=== PATIENT | female | born 1950 | race Caucasian/White ===

== ENCOUNTER → 2018-08-23 16:45 | Outpatient (CLI) | payer MEDICARE, SELFPAY ==
[2018-08-23 18:00] LABS: Hematocrit 31.6 % (37-47); Hemoglobin 9.1 g/dl (12.0-15.0)
[2018-08-23 18:27] LABS: Iron 255 ug/dL (50-170)
[2018-08-25 16:08] LABS: Endomysial Antibody IgA Negative (Negative); Immunoglobulin A 81 mg/dL (87-352)
[2018-08-26 07:55] LABS: t-Transglutaminase IgA <2 U/mL (0-3)
== END ==
PROVIDERS: Family Provider Family Medicine; PCP Family Medicine; Referring Provider Internal Medicine Gastroenterology; Visit Provider Internal Medicine Gastroenterology
DX: D50.9 Iron deficiency anemia, unspecified (principal)
CPT/HCPCS: 36415; 82784; 83516; 83540; 85014; 85018; 86255

== ENCOUNTER → 2018-09-14 09:00 | Outpatient (CLI) | payer MEDICARE, SELFPAY ==
[2018-09-14 10:29] LABS: Absolute Lymphocyte Count 1.32 X10^3/ul (0.83-4.51); Absolute Neutrophil Count 3.2 X10^3/uL (2.0-7.7); Basophil# 0.03 X10^3/uL; Basophil% 0.6 % (0-1); Eosinophil# 0.29 X10^3/uL; Eosinophils% 5.4 % (0-5); Hematocrit 34.1 % (37-47); Hemoglobin 10.6 g/dl (12.0-15.0); Lymphocyte # 1.32 X10^3/ul (4.0); Lymphocyte % 24.4 % (19-41); Mean Corp Hgb Conc 31.1 g/gl (32-36); Mean Corpuscular Hgb 27.2 pg (27.0-32.0); Mean Corpuscular Volume 87.4 fL (81-99); Mean Platelet Vol. 9.7 fl (6.2-12.0); Monocyte# 0.59 X10^3/uL; Monocyte% 10.9 % (0-10); Neutrophil # 3.18 X10^3/uL (2.7-7.7); Neutrophil % 58.5 % (47-70); Platelet Count 384 K/mm3 (150-450); White Blood Count 5.4 K/mm3 (4.4-11.0)
[2018-09-14 10:34] LABS: Differential Indicated SCAN CRITERIA MET; POSITIVE COUNT NO; POSITIVE DIFFERENTIAL NO; POSITIVE MORPHOLOGY YES
[2018-09-14 11:02] LABS: Anisocytosis 2+; Hypochromasia 2+
[2018-09-14 11:03] LABS: Ferritin 41 ng/mL (8-252); Iron 38 ug/dL (50-170)
== END ==
PROVIDERS: Family Provider Family Medicine; PCP Family Medicine; Referring Provider Internal Medicine Gastroenterology; Visit Provider Internal Medicine Gastroenterology
DX: D50.9 Iron deficiency anemia, unspecified (principal); R53.83 Other fatigue
CPT/HCPCS: 36415; 82728; 83540; 85025

== ENCOUNTER → 2018-11-02 | Outpatient (CLI) | payer MEDICARE, SELFPAY ==
[2018-11-02 12:31] LABS: Absolute Lymphocyte Count 1.14 X10^3/ul (0.83-4.51); Basophil# 0.01 X10^3/uL; Basophil% 0.3 % (0-1); Eosinophil# 0.14 X10^3/uL; Eosinophils% 3.6 % (0-5); Hematocrit 34.7 % (37-47); Lymphocyte # 1.14 X10^3/ul (4.0); Lymphocyte % 29.3 % (19-41); Mean Corp Hgb Conc 31.7 g/gl (32-36); Mean Corpuscular Hgb 28.9 pg (27.0-32.0); Mean Corpuscular Volume 91.3 fL (81-99); Mean Platelet Vol. 9.2 fl (6.2-12.0); Monocyte# 0.59 X10^3/uL; Monocyte% 15.2 % (0-10); Neutrophil # 2.01 X10^3/uL (2.7-7.7); Neutrophil % 51.6 % (47-70); Platelet Count 333 K/mm3 (150-450); RBC Distribution Width CV 19.1 % (11.6-14.6); RBC Distribution Width SD 62.9 fl (35.1-43.9); White Blood Count 3.9 K/mm3 (4.4-11.0)
[2018-11-02 12:37] LABS: POSITIVE COUNT NO; POSITIVE DIFFERENTIAL NO; POSITIVE MORPHOLOGY NO
[2018-11-02 13:29] LABS: Ferritin 45 ng/mL (8-252); Iron 36 ug/dL (50-170)
== END | disposition home or self-care (01) ==
LOC: MTLAB 10:57
PROVIDERS: Family Provider Family Medicine; PCP Family Medicine; Referring Provider Internal Medicine Gastroenterology; Visit Provider Internal Medicine Gastroenterology
DX: D50.9 Iron deficiency anemia, unspecified (principal)
CPT/HCPCS: 36415; 82728; 83540; 85025

== ENCOUNTER → 2018-11-26 09:11 | Outpatient (CLI) | payer MEDICARE, SELFPAY ==
--- NOTE | 2018-11-26 09:25 | RAD_ITS ---
STUDY: AIR-CONTRAST UPPER GI SERIES. REASON FOR EXAM: Female, 68 years old. Hiatal hernia. Anemia. FLUOROSCOPY TIME (if supplied): (0:33) minutes/seconds. 23 images were obtained. TECHNIQUE: The patient ingested barium. Multiple images of the esophagus, stomach and duodenum were obtained. COMPARISON: None. FINDINGS: There is evidence of a large hiatal hernia with gastroesophageal reflux. There is also evidence of tertiary contractions of the distal esophagus. The remainder of the stomach and duodenum is unremarkable. RAD/Upper GI Series Only IMPRESSION: Large hiatal hernia with gastroesophageal reflux. Tertiary contractions of the distal esophagus. Electronically Signed: Manav Sheth, at 15:30 EDT , Service support ,
== END ==
PROVIDERS: Family Provider Family Medicine; PCP Family Medicine; Referring Provider Internal Medicine Gastroenterology; Visit Provider Internal Medicine Gastroenterology
DX: K44.9 Diaphragmatic hernia without obstruction or gangrene (principal); K21.9 Gastro-esophageal reflux disease without esophagitis
CPT/HCPCS: 74246

== ENCOUNTER 2020-09-14 06:45 | Observation (INO) | payer MEDICARE, SELFPAY ==
[2020-09-13 15:05] VITALS: BP 166/64; PULSE 76; RESP 16; TEMP 36.3; O2SAT 96
--- NOTE | 2020-09-13 15:09 | PCM.HP.STD ---
History of Present Illness Date of Admission: 09/13/20 The patient is a 70 year old F Is a direct admit from [facility]. Patient was admitted yesterday morning after going to the ER due to right upper quadrants/right back pain starting about 2:30 AM on Thursday. Patient states she had nausea and dry heaves at that time. Patient was initially worked up for cardiac which was negative. Patient then had a gallbladder ultrasound which showed sludge/stones at the neck of the gallbladder, No pericholecystic fluid per the report,Gallbladder wall of 3.5 mm, normal common bile duct. Patient's MRCP completed there as well showed pericholecystic fluid and normal common bile duct.Patient's total bilirubin was initially 1.51 down to 1 today. Patient's ALT and AST and alk phos were all elevated improved a little today.Patient has been on Zosyn IV during the entire hospital stay. Patient also had issues with blood pressure did receive her normal blood pressure meds of atenolol but also required some hydralazine due to systolic blood pressures in the 180s to 190s. Patient does have a history of Covid in June of last year. Patient also has myasthenia gravis ocular which she takes 5 mg of prednisone for which has been controlled patient symptoms only include double vision when she has not had for a while. Past Medical History Allergies naproxen Allergy (Verified 09/13/20 14:08) Other UNKNOWN REACTION NSAIDS (Non-Steroidal Anti-Inflamma Adverse Reaction (Verified 09/13/20 14:07) Bleeding Home Medications: Ambulatory Orders Medication Instructions Recorded Acetaminophen [Acetaminophen Extra 1,000 mg PO Q4H PRN PRN 09/13/20 Strength] Atenolol 50 mg PO BID 09/13/20 Furosemide 40 mg PO DAILY 09/13/20 Paroxetine [Paxil] 20 mg PO DAILY 09/13/20 Potassium Chloride 10 meq PO DAILY 09/13/20 Pravastatin [Pravachol] 40 mg PO DAILY 09/13/20 Prednisone 5 mg PO DAILY 09/13/20 Surgical History: total knee arthroplasty - left, tonsillectomy, - - Hiatal hernia repair in February 2020 at [facility] by Dr. Bonds, right carpal tunnel Psychiatric History: Depression [employer] History: No pertinent [employer] history Lives: Spouse/ Significant Other Smoking Status: Never smoker Alcohol: Occasional - *Family History Maternal History Items: No pertinent history Review of Systems Constitutional: Reports: Anorexia Eyes: Denies: Blurred vision - Can have a double vision with her myasthenia gravis has not had that in a while. HEENT: Denies: Difficulty Swallowing Respiratory: Denies: Cough Gastrointestinal: Reports: Abdominal Pain, Constipation, Nausea Genitourinary: Denies: Dysuria Neurological: Denies: Double vision - Only if she is having symptoms of her myasthenia gravis currently denies Hematologic/ Lymphatic: Reports: Easy Bleeding VTE Information - Inpt Only VTE Present on Admission: Yes VTE Mechan Device Prophylaxis: SCD's - Physical Exam Vitals/I&O's: Vital Signs Temp Pulse Resp BP Pulse Ox 97.3 F L 76 16 166/64 H 96 09/13/20 15:05 09/13/20 15:05 09/13/20 15:05 09/13/20 15:05 09/13/20 15:05 Oxygen Delivery Method Room Air General: Alert, Oriented x3, Cooperative, No apparent distress HEENT: Atraumatic Lungs: Normal air movement Cardiovascular: Regular rate Abdomen: Soft, Non-Distended, Tender - Right upper quadrant, equivocal rebound, no involuntary guarding Extremities: No clubbing, No cyanosis Neurological: Cranial nerves II-XII grossly intact Psych/Mental Status: Normal Affect Assessment/Plan 70 y/o F with acute cholecystitis, HTN, Myasthenia gravis 1. Keep patient n.p.o./IV fluids, Okay for meds with sips, plan for a laparoscopic cholecystectomy with cholangiograms tomorrow about 11 AM. Reviewed the anatomy with the patient and discussed the procedure: laparoscopic cholecystectomy with possible cholangiograms, possible open. Review risks including but not limited to bleeding, infection, hernia, bile leak, retained gallstones requiring another procedure ERCP- Endoscopic Retrograde Cholangiopancreatography, injury to another organ (bile ducts, common bile duct, small bowel, etc.) which may require transfer to a tertiary care facility. and conversion to an open procedure. All questions were answered. 2. Consult hospitalist for help with blood pressure management/optimization prior to surgery tomorrow. Arianna Stevenson M.D. Pager: [phone] [facility] [address] [place] [address], [facility], [address] [place], [place] [id number] Office: [phone] Inpatient E&M: 28866 Init Hosp L3
[2020-09-13 15:12] VITALS: BMI 37.0
--- NOTE | 2020-09-13 15:15 | EKG12_ITS ---
Test Reason : PRE OP Blood Pressure : / mmHG Vent. Rate : 053 BPM Atrial Rate : 053 BPM P-R Int : 168 ms QRS Dur : 084 ms QT Int : 464 ms P-R-T Axes : 044 024 025 degrees QTc Int : 435 ms Sinus bradycardia Otherwise normal ECG Confirmed by BENJA YODER, CHAUNCEY ([id number]), associate entertainment editor AYE PACHECO ([id number]) on 09/18/2020 1:11:34 PM Referred By: JOVI Confirmed By:CHAUNCEY YOUSIF MD
[2020-09-13 15:21] VITALS: BMI 37.0
--- NOTE | 2020-09-13 15:45 | RAD_ITS ---
STUDY: X-RAY CHEST REASON FOR EXAM: Female, 70 years old. Pre-op for pelvic surgery TECHNIQUE: Single AP portable view of the chest. COMPARISON: None. FINDINGS: The lungs are expanded with diffuse airspace and interstitial markings in both lung carrasquillo. There are no previous studies available for comparison so I am unsure if this is a baseline finding in this patient. I suspect however that there is a superimposed process. The findings in this study can be seen with covid pneumonia, multifocal pneumonitis or pulmonary vascular congestion. There is no demonstrated pleural abnormality. Normal size heart. Normal mediastinum and reyes. Normal visualized pulmonary arteries. Normal visualized aortic arch and descending thoracic aorta. There are diffuse degenerative changes of the visualized thoracic spine. Normal visualized ribs, clavicles, and shoulders. There is no demonstrated abnormality of the visualized soft tissue structures of the upper abdomen. RAD/Chest 1 View (Portable) IMPRESSION: Diffuse airspace and interstitial markings in both lung carrasquillo. Differential as described above. Since there is no previous study available for comparison, the markings may be a baseline finding for the patient. Electronically Signed: Mukesh Pinzon MD at 16:56 EST , Service support ,
--- NOTE | 2020-09-13 15:58 | PCM.PN.HOSP ---
Subjective: Ms. Lubin is a 70-year-old female with a past medical history of hypertension, hyperlipidemia, depression, GERD, and chronic prednisone secondary to myasthenia gravis ocular who presents here as a direct admission from [facility]. The patient was admitted to [facility] yesterday morning after going to the emergency department secondary to right upper quadrant pain and right-sided back pain that started approximately 2:30 AM on Thursday. She had nausea and dry heaves at that time. She initially underwent a cardiac work-up which was negative. She then had a gallbladder ultrasound which showed sludge/stones in the neck of the gallbladder. The common bile duct was reported as normal. An MRCP was completed there and showed pericholecystic fluid within normal common bile duct. She initially had an elevated bilirubin at 1.5 which has come down today to 1. But her ALT, AST, and alk phos were all elevated with some mild improvement in the last 24 hours. She has been on IV Zosyn during her hospitalization. She was admitted to Dr. Stevenson from service with the plan to have a lap marylin done tomorrow morning at 11 AM. Medicine has been consulted for persistent hypertension with systolics in the 180s to 190s prior to arrival. Current vital signs show normal temperature with a pulse at 76 a blood pressure of 166/64 respiratory rate of 16 and an oxygen saturation of 96% on room air. Vitals/I&O's: Vital Signs Temp Pulse Resp BP Pulse Ox 97.3 F L 76 16 166/64 H 96 09/13/20 15:05 09/13/20 15:05 09/13/20 15:05 09/13/20 15:05 09/13/20 15:05 Oxygen Delivery Method Room Air Weight: 88.8 kg Body Mass Index (BMI) 37.0 General: Alert, Oriented x3, Cooperative, No apparent distress, Well developed, Well nourished, - - Obese white female sitting up in bed, watching TV, appears comfortable HEENT: Atraumatic, PERRLA, EOMI, Normocephalic, EAC Clear Oral: Moist Mucosa, No Gingival or Mucosal Lesions/ Ulcerations, - - Mallampati 3 Neck: Supple, No JVD, Negative Carotid Bruits, Negative Hepatojugular Reflux, No Nodes, No Nuchal Rigidity, Trachea Midline, Thyroid Normal Size and Texture Lungs: Clear to auscultation, Normal air movement, No rhonchi, No wheeze, No rales Cardiovascular: Regular rate, Regular Rhythm, Normal S1, Normal S2, No murmurs, No Ectopic Activity, No rub noted, No Gallop Abdomen: Bowel Sounds Present, Soft, Non-Distended, No Hepato-splenomegaly, Tender - Right upper quadrant Extremities: No clubbing, No cyanosis, No edema, Capillary Refill Less than 3 Seconds, Peripheral Pulses Normal Neurological: Cranial nerves II-XII grossly intact, Neuro grossly intact Psych/Mental Status: Normal Affect, Appropriate Current Medications Hydralazine HCl (Hydralazine 20 Mg/Ml Vial) 10 mg IV Q6H PRN PRN PRN Reason: SBP>160 Sodium Chloride () 1,000 mls @ 100 mls/hr IV .Q10H KANDACE Piperacillin Sod/Tazobactam (Sod 3.375 gm/ Sodium Chloride) 50 mls @ 12.5 mls/hr IV Q8 KANDACE Morphine Sulfate (Morphine 2 Mg/Ml Syringe) 2 - 4 mg IV Q2H PRN PRN PRN Reason: PAIN Ondansetron HCl (Ondansetron 4 Mg/2 Ml Vial) 4 mg IV Q8H PRN PRN PRN Reason: NAUSEA Sodium Chloride (0.9% Saline Lock 10 Ml Syringe) 10 - 40 ml IV UD PRN PRN Reason: SALINE FLUSH STROKE Vital Signs/Narrative: Vital Signs Temp Pulse Resp BP Pulse Ox 09/13/20 15:05 97.3 F L 76 16 166/64 H 96 Medical Necessity - Tobacco Use Smoking Status: Never smoker Assessment/Plan Acute cholecystitis -OR tomorrow at 11 AM for lap marylin -Patient is admitted to Dr. Tate's service -Lab ordered for a.m. -As needed Zofran -Continue Zosyn -Patient had extensive cardiac work-up prior to admission and this was all negative -Preop EKG required Transaminitis -Continue to trend labs -OR tomorrow morning Hypertension -Continue home atenolol 50 mg p.o. twice daily -Continue Lasix 40 mg daily -Add hydralazine 10 mg every 6 hours as needed for systolic blood pressure greater than 160 Hyperlipidemia -Continue pravastatin Myasthenia gravis ocular -Continue prednisone 5 mg daily -Patient does not require stress dose steroids with procedures or illness Obesity -Recommend weight loss -BMI 37 DVT prophylaxis -Start SCDs -Chemical prophylaxis per primary Inpatient E&M: 23598 Subs Hosp L2
[2020-09-13] MEDS: 0.9% Normal Saline 1,000 ML 100 ML IV (18:00)
[2020-09-13 19:50] VITALS: BP 189/72; PULSE 57; RESP 18; TEMP 36.7; O2SAT 95
[2020-09-13] MEDS: Atenolol 50 MG Tablet PO (19:50)
[2020-09-13] MEDS: Acetaminophen 325 MG Tablet 650 MG PO (20:22)
[2020-09-13] MEDS: Pravastatin 40 MG Tablet PO (22:08)
[2020-09-13 22:10] VITALS: BP 191/82; PULSE 53; RESP 16; TEMP 36.7; O2SAT 96
[2020-09-13] MEDS: hydrALAZINE 20 MG/ML Vial 10 MG IV (22:10)
[2020-09-13 23:20] VITALS: BP 157/69; PULSE 65; RESP 16; TEMP 36.6; O2SAT 96
[2020-09-14] VITALS (19 sets, daily range): BP systolic 114–210; BP diastolic 66–82; PULSE 62–82; RESP 12–18; TEMP 36.5–37.2; O2SAT 94–99; BMI 37.0
--- NOTE | 2020-09-14 | GALL_PTH ---
PATIENT: UBALDO ROJAS LOC: [facility] U#:[id number] AGE/SX: 70/F ROOM: [facility] RE09/14/[address]: Dr. Sania Cosme MD : 1950 BED: 1 DIS: 09/14/2020 SPEC #: [id number] RECD: 09/14/20 13:52 STATUS: ALMA REQ #: [id number] JIA: 09/14/20 00:[address]: Arianna Stevenson DEPT: SURGICAL PATHOLOGY RECD BY: Rasta Wesley ENTERED: 09/17/20 08:27 SP TYPE: GALLBLADDE OTHR DR: MD Dr. Shereen Murphy DO Dr. Nana Yaa Koram, MD Dr. Tamera Robotham, MD Tissues: Gallbladder, NOS Procedures: Surgery Specimen Level III Comments: @ Ordering doctor for SUIII edited from to @ by PEPE at 09/17/20 151 @ Submitting doctor edited from to @ by RGOOD at 09/17/201510 HEADER OPERATION: Laparoscopic cholecystectomy with IOC PRE-OP DIAGNOSIS: Acute cholecystitis TISSUE SUBMITTED: Gallbladder MICROSCOPIC DIAGNOSIS Gallbladder, cholecystectomy: Mild chronic cholecystitis and cholelithiasis. ESMER:jenny 09/18/2020 MICROSCOPIC DESCRIPTION Slides are reviewed. GROSS DESCRIPTION Received is one container labeled with the patient's name and designated gallbladder. The specimen consists of a gallbladder measuring 8 cm in length and up to 3 cm in diameter. The external surface is pink-peters, smooth and glistening for the most part. Focally it is granular, hemorrhagic and contains cautery artifact. The gallbladder contains green-yellow mucoid bile and multiple brownish stones measuring in aggregate 2 x 1.5 x 0.1 cm and 0.1 cm in greatest dimension. The mucosa is bile-stained and without any mass lesions. The gallbladder wall measures up to 0.2 cm in thickness. Professor Of Art sections from the gallbladder and the cystic duct are submitted in one cassette. / ESMER:jenny 09/17/20 TC:3 CPT: 87254
[2020-09-14] MEDS: Ondansetron 4 MG/2 ML Vial IV (01:41)
[2020-09-14] MEDS: 0.9% Normal Saline 1,000 ML 100 ML IV ×2 (02:38→14:09)
[2020-09-14] MEDS: hydrALAZINE 20 MG/ML Vial 10 MG IV (05:44)
--- NOTE | 2020-09-14 05:55 | EKG12_ITS ---
Test Reason : AM EKG Blood Pressure : / mmHG Vent. Rate : 061 BPM Atrial Rate : 061 BPM P-R Int : 166 ms QRS Dur : 088 ms QT Int : 444 ms P-R-T Axes : 054 024 -03 degrees QTc Int : 446 ms Normal sinus rhythm Normal ECG No previous ECGs available Confirmed by BENJA YODER, CHAUNCEY ([id number]), editorial clerk AYE PACHECO ([id number]) on 09/18/2020 1:04:54 PM Referred By: JOVI Confirmed By:CHAUNCEY YOUSIF MD
[2020-09-14 05:57] LABS: Absolute Lymphocyte Count 1.03 X10^3/uL (0.83-4.51); Absolute Neutrophil Count 4.7 X10^3/uL (2.0-7.7); Basophil# 0.02 X10^3/uL; Basophil% 0.3 % (0-1); Eosinophil# 0.18 X10^3/uL; Eosinophils% 2.8 % (0-5); Hematocrit 37.4 % (37-47); Hemoglobin 11.8 g/dL (12.0-15.0); Lymphocyte # 1.03 X10^3/ul (4.0); Lymphocyte % 15.8 % (19-41); Mean Corp Hgb Conc 31.6 g/dL (32-36); Mean Corpuscular Hgb 32.2 pg (27.0-32.0); Mean Corpuscular Volume 101.9 fL (81-99); Mean Platelet Vol. 9.4 fl (6.2-12.0); Monocyte# 0.56 X10^3/uL; Monocyte% 8.6 % (0-10); NRBC Flagged by Analyzer 0 % (0-5); Neutrophil # 4.69 X10^3/uL (2.7-7.7); Platelet Count 228 K/mm3 (150-450); RBC Distribution Width CV 13.5 % (11.6-14.6); RBC Distribution Width SD 50.6 fl (35.1-43.9); Red Blood Count 3.67 M/mm3 (4.2-5.4); White Blood Count 6.5 K/mm3 (4.4-11.0)
[2020-09-14 06:27] LABS: AST(SGOT) 116 U/L (15-37); Alanine Aminotransfer ALT/SGPT 199 U/L (13-56); Albumin, Serum 3.2 g/dL (3.2-5.0); Alkaline Phosphatase 181 U/L (45-117); Anion Gap 9 (5-15); BUN 8 mg/dL (7-18); Bilirubin, Direct 0.32 mg/dL (0.00-0.30); Calcium,Total 8.6 mg/dL (8.5-10.1); Chloride 105 mmol/L (98-107); Creatinine, Serum 0.67 mg/dL (0.55-1.02); EST Glomerular Filtration Rate 93 mL/min (>60); Est Glom Filt Rate - Afr Amer 113 mL/min (>60); Globulin 3.6 g/dL (2.2-4.2); Glucose 85 mg/dL (74-106); Potassium 4.3 mmol/L (3.5-5.1); Protein, Total 6.8 g/dL (6.4-8.2); Sodium Level 140 mmol/L (136-145)
[2020-09-14] MEDS: predniSONE 5 MG Tablet PO (08:11)
[2020-09-14] MEDS: Atenolol 50 MG Tablet PO (08:12)
[2020-09-14] MEDS: Paroxetine 20 MG Tablet PO (08:12)
[2020-09-14] MEDS: Furosemide 40 MG Tablet PO (08:12)
--- NOTE | 2020-09-14 08:15 | PCM.PN.SRG ---
Subjective: Patient did have some dry heaves with going to the bathroom during the night. Patient states that her abdominal pain is improved overall. Patient still has had blood pressures systolically in the 160s last states where patient has been on her medication she needs to follow-up with PCP. - Physical Exam Vitals/I&O's: Vital Signs Temp Pulse Resp BP Pulse Ox 98.0 F 64 18 196/80 H 94 09/14/20 05:34 09/14/20 05:44 09/14/20 05:34 09/14/20 05:34 09/14/20 05:34 Oxygen Delivery Method Room Air Weight: 195 lb 12.328 oz Body Mass Index (BMI) 37.0 Intake and Output for Last 24 Hours 09/12/20 09/13/20 09/14/20 23:59 23:59 23:59 Intake Total 390 / 390 913.33 / 913.33 Balance 390 / 390 913.33 / 913.33 General: Alert, Oriented x3, Cooperative, No apparent distress HEENT: Atraumatic Lungs: Normal air movement Cardiovascular: Regular rate Abdomen: Soft, Non-Distended, Tender - The right upper quadrant, no peritoneal signs Laboratory Results 09/14/20 05:40: WBC 6.5, RBC 3.67 L, Hgb 11.8 L, Hct 37.4, MCV 101.9 H, MCH 32.2 H, MCHC 31.6 L, RDW Std Deviation 50.6 H, RDW Coeff of Eneida 13.5, Plt Count 228, MPV 9.4, Immature Gran % (Auto) 0.500, Neut % (Auto) 72.0 H, Lymph % (Auto) 15.8 L, Keith % (Auto) 8.6, Eos % (Auto) 2.8, Baso % (Auto) 0.3, Absolute Neuts (auto) 4.7, Absolute Lymphs (auto) 1.03, Nucleated RBC % 0 09/14/20 05:40: Sodium 140, Potassium 4.3, Chloride 105, Carbon Dioxide 26.0, Anion Gap 9, BUN 8, Creatinine 0.67, Estim Creat Clear Calc 39.50, Est GFR (MDRD) Af Amer 113, Est GFR (MDRD) Non-Af 93, BUN/Creatinine Ratio 12.0, Glucose 85, Calcium 8.6, Total Bilirubin 1.00, Direct Bilirubin 0.32 H, AST 116 H, ALT 199 H, Alkaline Phosphatase 181 H, Total Protein 6.8, Albumin 3.2, Globulin 3.6 Current Medications Acetaminophen (Acetaminophen 325 Mg Tablet) 650 mg PO Q6H PRN PRN PRN Reason: Pain 1-10 or Fever Last Admin: 09/13/20 20:22 Dose: 650 mg Documented by: Atenolol (Atenolol 50 Mg Tablet) 50 mg PO BID REPLACED BY [facility] Last Admin: 09/14/20 08:12 Dose: 50 mg Documented by: Furosemide (Furosemide 40 Mg Tablet) 40 mg PO DAILY REPLACED BY [facility] Last Admin: 09/14/20 08:12 Dose: 40 mg Documented by: Hydralazine HCl (Hydralazine 20 Mg/Ml Vial) 10 mg IV Q4H PRN PRN PRN Reason: SBP>170 Last Admin: 09/14/20 05:44 Dose: 10 mg Documented by: Sodium Chloride () 1,000 mls @ 100 mls/hr IV .Q10H REPLACED BY [facility] Last Admin: 09/14/20 02:38 Dose: 100 mls/hr Documented by: Piperacillin Sod/Tazobactam (Sod 3.375 gm/ Sodium Chloride) 50 mls @ 12.5 mls/hr IV Q8 REPLACED BY [facility] Last Admin: 09/14/20 05:29 Dose: 12.5 mls/hr Documented by: Morphine Sulfate (Morphine 2 Mg/Ml Syringe) 2 - 4 mg IV Q2H PRN PRN PRN Reason: PAIN Ondansetron HCl (Ondansetron 4 Mg/2 Ml Vial) 4 mg IV Q8H PRN PRN PRN Reason: NAUSEA Last Admin: 09/14/20 01:41 Dose: 4 mg Documented by: Paroxetine HCl (Paroxetine 20 Mg Tablet) 20 mg PO DAILY REPLACED BY [facility] Last Admin: 09/14/20 08:12 Dose: 20 mg Documented by: Pravastatin Sodium (Pravastatin 40 Mg Tablet) 40 mg PO HS REPLACED BY [facility] Last Admin: 09/13/20 22:08 Dose: 40 mg Documented by: Prednisone (Prednisone 5 Mg Tablet) 5 mg PO DAILYCM REPLACED BY [facility] Last Admin: 09/14/20 08:11 Dose: 5 mg Documented by: Sodium Chloride (0.9% Saline Lock 10 Ml Syringe) 10 - 40 ml IV UD PRN PRN Reason: SALINE FLUSH Medical Necessity - Tobacco Use Smoking Status: Never smoker Assessment/Plan 70 y/o F with acute cholecystitis, HTN, Myasthenia gravis 1. Scheduled for laparoscopic cholecystectomy with cholangiograms today. Patient no questionable the procedure. 2. Appreciate hospitalist to help with hypertension Arianna Stevenson M.D. Pager: [phone] [facility] [address] [place] [address], [facility], [address] [place] [address] Office: [phone] Procedure Criteria COVID Risk Discussion: Already had Covid in June.
--- NOTE | 2020-09-14 11:24 | RAD_ITS ---
STUDY: INTRAOPERATIVE CHOLANGIOGRAM. REASON FOR EXAM: Female, 70 years old. LAPAROSCOPIC, CHOLECYSTECTOMY WITH IOC -- PT IS DIRECT ADMIT FROM [facility] FLUOROSCOPY TIME (if supplied): ( 13.7 seconds ) minutes/seconds. A cine loop of 54 images were submitted. TECHNIQUE: An intraoperative cholangiogram was performed by the surgeon. Imaging was submitted. COMPARISON: None. FINDINGS: The visualized intra and extrahepatic biliary ducts are unremarkable. There is free flow of contrast into the duodenum. No intraluminal filling defect is seen. RAD/Cholangiogram/ O R,Initial IMPRESSION: Unremarkable intraoperative cholangiogram. Electronically Signed: Manav Sheth MD at 12:47 EST , Service support ,
--- NOTE | 2020-09-14 12:01 | PN_ITS ---
Subjective: She is seen and examined. She has been managed for acute cholecystitis and she is due for cholecystectomy today. Hospitalist service was consulted for medical management of elevated blood pressure. She says she had a rough night due to abdominal pain and nausea. Abdominal pain has improved this morning. Review of systems otherwise negative. She does state that her blood pressure has been poorly controlled even at home with her systolic usually been in the 160s and above at home. Vitals/I&O's: Vital Signs Temp Pulse Resp BP Pulse Ox 98.6 F 67 16 192/74 H 98 09/14/20 10:46 09/14/20 11:02 09/14/20 10:46 09/14/20 10:52 09/14/20 10:46 Oxygen Delivery Method Room Air Weight: 195 lb 12.328 oz Body Mass Index (BMI) 37.0 Intake and Output for Last 24 Hours 09/12/20 09/13/20 09/14/20 23:59 23:59 23:59 Intake Total 390 / 390 963.33 / 963.33 Balance 390 / 390 963.33 / 963.33 General: Alert, Oriented x3, Cooperative, No apparent distress HEENT: Atraumatic, PERRLA, EOMI, Normocephalic Oral: Dry Mucosa Neck: Supple, No JVD, Negative Carotid Bruits Lungs: Clear to auscultation, Normal air movement, No rhonchi, No wheeze, No rales Cardiovascular: Regular rate, Regular Rhythm, Normal S1, Normal S2, No murmurs Abdomen: Bowel Sounds Present, Soft, - - positive Vance's sign Extremities: No clubbing, No cyanosis, No edema, Capillary Refill Less than 3 Seconds Skin: No rashes, No breakdown Musculoskeletal: No Tenderness to Palpation of Joints or Extremities Lymphatic: No Cervical, Supraclavicular, or Inguinal Adenopathy Neurological: Cranial nerves II-XII grossly intact, Neuro grossly intact, Motor Exam 5/5 strength throughout Psych/Mental Status: Normal Affect, Appropriate, Alert and oriented to time, place, person, mood and affect Laboratory Results 09/14/20 05:40: WBC 6.5, RBC 3.67 L, Hgb 11.8 L, Hct 37.4, MCV 101.9 H, MCH 32.2 H, MCHC 31.6 L, RDW Std Deviation 50.6 H, RDW Coeff of Eneida 13.5, Plt Count 228, MPV 9.4, Immature Gran % (Auto) 0.500, Neut % (Auto) 72.0 H, Lymph % (Auto) 15.8 L, [place] % (Auto) 8.6, Eos % (Auto) 2.8, Baso % (Auto) 0.3, Absolute Neuts (auto) 4.7, Absolute Lymphs (auto) 1.03, Nucleated RBC % 0 09/14/20 05:40: Sodium 140, Potassium 4.3, Chloride 105, Carbon Dioxide 26.0, Anion Gap 9, BUN 8, Creatinine 0.67, Estim Creat Clear Calc 39.50, Est GFR (MDRD) Af Amer 113, Est GFR (MDRD) Non-Af 93, BUN/Creatinine Ratio 12.0, Glucose 85, Calcium 8.6, Total Bilirubin 1.00, Direct Bilirubin 0.32 H, AST 116 H, ALT 199 H, Alkaline Phosphatase 181 H, Total Protein 6.8, Albumin 3.2, Globulin 3.6 Diagnostic Data Chest X-Ray 09/13/20 15:45 IMPRESSION: Diffuse airspace and interstitial markings in both lung carrasquillo. Differential as described above. Since there is no previous study available for comparison, the markings may be a baseline finding for the patient. Electronically Signed: Mukesh Pinzon MD at 16:56 EST , Service support , Current Medications Acetaminophen (Acetaminophen 325 Mg Tablet) 650 mg PO Q6H PRN PRN PRN Reason: Pain 1-10 or Fever Last Admin: 09/13/20 20:22 Dose: 650 mg Documented by: Atenolol (Atenolol 50 Mg Tablet) 50 mg PO BID [facility] Last Admin: 09/14/20 08:12 Dose: 50 mg Documented by: Furosemide (Furosemide 40 Mg Tablet) 40 mg PO DAILY [facility] Last Admin: 09/14/20 08:12 Dose: 40 mg Documented by: Hydralazine HCl (Hydralazine 20 Mg/Ml Vial) 10 mg IV Q4H PRN PRN PRN Reason: SBP>170 Last Admin: 09/14/20 05:44 Dose: 10 mg Documented by: Sodium Chloride () 1,000 mls @ 100 mls/hr IV .Q10H [facility] Last Admin: 09/14/20 02:38 Dose: 100 mls/hr Documented by: Piperacillin Sod/Tazobactam (Sod 3.375 gm/ Sodium Chloride) 50 mls @ 12.5 mls/hr IV Q8 [facility] Last Infusion: 09/14/20 10:12 Dose: Infused Documented by: Morphine Sulfate (Morphine 2 Mg/Ml Syringe) 2 - 4 mg IV Q2H PRN PRN PRN Reason: PAIN Ondansetron HCl (Ondansetron 4 Mg/2 Ml Vial) 4 mg IV Q8H PRN PRN PRN Reason: NAUSEA Last Admin: 09/14/20 01:41 Dose: 4 mg Documented by: Paroxetine HCl (Paroxetine 20 Mg Tablet) 20 mg PO DAILY [facility] Last Admin: 09/14/20 08:12 Dose: 20 mg Documented by: Pravastatin Sodium (Pravastatin 40 Mg Tablet) 40 mg PO HS [facility] Last Admin: 09/13/20 22:08 Dose: 40 mg Documented by: [facility]one ([facility] 5 Mg [facility]) [facility] Last Admin: 09/14/20 08:11 Dose: 5 mg Documented by: Sodium Chloride (0.9% Saline Lock 10 Ml Syringe) 10 - 40 ml IV UD PRN PRN Reason: SALINE FLUSH STROKE Vital Signs/Narrative: Vital Signs Temp Pulse Resp BP Pulse Ox 09/14/20 11:02 67 09/14/20 10:52 192/74 H 09/14/20 10:46 98.6 F 68 16 98 09/14/20 08:17 97.9 F 76 16 169/73 H 95 Medical Necessity - Tobacco Use Smoking Status: Never smoker Assessment/Plan #Acute cholecystitis * for lap cholecysteomy today * general surgery on board * on IV zofran * #Elevated liver enzymes; due to acute cholecystitis. Will trend #Hypertension * Pressures poorly controlled. On atenolol 50 mg twice daily. States is poorly controlled at home as well. * We will add on amlodipine 10 mg daily to atenolol 50 mg twice daily. * IV hydralazine as needed. * #Hyperlipidemia: On statin #Ocular myasthenia gravis: On prednisone 5 mg daily. DVT Prophylaxis: Lovenox Inpatient E&M: 54006 Subs Hosp L3
[2020-09-14] MEDS: Bupivacaine Mpf 0.5% 30 ML VIAL (12:26)
--- NOTE | 2020-09-14 12:27 | OP.PCM_ITS ---
Report of Operation Date of Procedure: 09/14/20 Pre-Operative Diagnosis: Acute cholecystitis Post-Operative Diagnosis: Same Surgery/Procedure Performed:: Laparoscopic cholecystectomy with cholangiograms precision instrument maker: Akua Mondragon Type of Anesthesia:: General/Supplemental Anesthesiologist: Scooter Pierce Special Medications: Zosyn 3.375 g IV every 8 for acute cholecystitis on the floor Specimen's removed: Gallbladder Estimated Blood Loss (mL): 20 cc Fluids Replaced: 500 cc Description of Procedure: Indications this is a 70 year-old female who developed abdominal pain/nausea/vomiting and on workup was found to have cholelithiasis, acute cholecystitis, elevated liver functions, with a normal common bile duct. Laparoscopic cholecystectomy was elected. Description procedure: The patient was placed on operating table in supine position. General Anesthesia was induced. A timeout was completed verifying correct patient, procedure, site, position and special equipment prior to beginning procedure. The abdomen was prepped and draped in usual sterile fa shion. An incision was made in the natural skin line above the umbilicus. The fascia was elevated and incised. The peritoneum was elevated and incised. Entry into the peritoneum was confirmed visually and no bowel was noted in the vicinity of the incision. Wills trocar was placed. The abdomen was insufflated with carbon dioxide to a pressure of 12-15 mmHg. Patient tolerated insufflation well. The laparoscope was then inserted and abdomen inspected. No injuries from initial trocar placement were noted. Additional trochars were then inserted in the following locations 5 mm trocar in the epigastrium and 2 more 5 mm trochars along the right costal margin. The abdomen was inspected no abnormalities were found. The table is placed in reverse Trendelenburg position with the right side up. The adhesions between the gallbladder and omentum were lysed sharply. The dome of the gallbladder was grasped with atraumatic grasper passed through the lateral port and retracted over the dome of the liver. Infundibulum was then grasped with atraumatic grasper through the midclavicular port and retracted to the right lower quadrant. This maneuver exposed Calot's triangle. The peritoneum overlying the gallbladder infundibulum was then incised and cystic duct and artery identified and circumferentially dissected. In the right upper quadrant was made to place the Ranfac catheter. Ranfac catheter was used for cholangiograms. The cholangiogram showed good filling of the common bile duct into the duodenum with no filling defects, good filling of the right and left bile ducts as well. The cystic duct and artery were then doubly clipped and divided close to the gallbladder. The gallbladder then dissected from its peritoneal attachments by electrocautery. Hemostasis was checked and the gallbladder and contained stones were removed using the endoscopic retrieval bag through the umbilical port. The gallbladder is passed off table as specimen. The gallbladder fossa was copi ously irrigated with saline and Erby was used for hemostasis. There is no evidence of bleeding from the gallbladder fossa or cystic artery leakage of bile from the cystic duct stump. Secondary trochars removed under direct vision. No bleeding was noted the trocar sites. The laparoscope was withdrawn and umbilical trocar removed. The abdomen was allowed to collapse. The fascia of the 12 mm trocar was closed with a [id number] 0 Vicryl suture. The skin was closed with sutures of 4-0 Monocryl and Steri-Strips. The orogastric tube was removed and the patient was extubated. The patient tolerated procedure well and was taken to the postanesthesia care unit in stable condition. - Complications none
--- NOTE | 2020-09-14 12:32 | DCINST_ITS ---
Discharge Diet: Light diet - advance as tolerated Discharge Activity: May not drive while taking narcotic pain medications. May shower in (days): 1 - Steri-Strips will stay on for 7 to 10 days if not follow-up in 10 days okay to remove. Okay to remove the op sites tomorrow. Lifting Restrictions: no lifting > 20 lb x 2 weeks, no strenuous exercise for 4 wks Call your doctor if your incision/area has: Continuous Slow Oozing, Sudden Increased Bleeding, Increased Pain/ Swelling, Increased Redness, Foul Smelling Discharge, Swelling at the incision site Call your doctor if you observe: Fever of 101 or Higher Remove Dressing in (days):: 1 - Plan to remove op sites tomorrow Steri-Strips will stay on for 7 to 10 days. Allergies/Adverse Reactions: Allergies naproxen Allergy (Verified 09/13/20 14:08) Other UNKNOWN REACTION NSAIDS (Non-Steroidal Anti-Inflamma Adverse Reaction (Verified 09/13/20 14:07) Bleeding Medications to take at Discharge Acetaminophen [Acetaminophen Extra Strength] 1,000 mg PO Q4H PRN PRN 09/13/20 Atenolol 50 mg PO BID 09/13/20 Furosemide 40 mg PO DAILY 09/13/20 Paroxetine [Paxil] 20 mg PO DAILY 09/13/20 Potassium Chloride 10 meq PO DAILY 09/13/20 Pravastatin [Pravachol] 40 mg PO DAILY 09/13/20 Prednisone 5 mg PO DAILY 09/13/20 Oxycodone [Oxyir] 5 mg PO Q6H PRN PRN 4 Days #15 tablet 09/14/20 The following prescriptions were given: Oxycodone [Oxyir] 5 mg PO Q6H PRN PRN 4 Days #15 tablet PRN Reason: Pain Score 6-10 Transmission Status: Sent to [facility] Primary Care Physician: Orlando Mondragon MD [Primary Care Provider] - Please follow up with your Primary Care Physician in: in 1-2 wks for BP check/possible increase medication Test Results: Test results from this visit will be discussed in further detail at your follow- up appointment, if applicable. Please Follow Up With: Arianna Stevenson MD - After 5 PM and on the weekends call [phone] with any concerns. When: Call the office for a follow-up in 2 weeks. Proposed Discharge Date: 09/14/20
[2020-09-14] MEDS: oxyCODONE 5 MG Tablet PO (17:05)
== END 2020-09-14 17:34 | disposition home or self-care (01) ==
PROVIDERS: Admitting Provider Surgery; PCP Family Medicine; Visit Provider Student in an Organized Health Care Education/Training Program
PROC: (CPT 47610; principal; 2020-09-14 11:15)
DX: K80.10 Calculus of gallbladder with chronic cholecystitis without obstruction (principal); G70.00 Myasthenia gravis without (acute) exacerbation; F32.9 Major depressive disorder, single episode, unspecified; I10 Essential (primary) hypertension; E78.5 Hyperlipidemia, unspecified; K21.9 Gastro-esophageal reflux disease without esophagitis; R74.01 Elevation of levels of liver transaminase levels; E66.9 Obesity, unspecified; Z79.899 Other long term (current) drug therapy; Z79.52 Long term (current) use of systemic steroids; Z68.37 Body mass index [BMI] 37.0-37.9, adult
CPT/HCPCS: 47563; 36415; 71045; 74300; 76000; 80048; 80076; 85025; 88304; 93005; 96361; 96365; 96366; 96375; 96376; J7030; J2405

== ENCOUNTER → 2025-03-14 | Outpatient (CLI) | payer MEDICARE, SELFPAY ==
--- NOTE | 2025-03-14 13:12 | CT_ITS ---
PROCEDURE: LIMITED CHEST CT CARDIAC ONLY 03/14/2025 REASON FOR EXAM: CHEST PAIN,SOB TECHNIQUE: LIMITED CHEST CT CARDIAC ONLY One or more dose reduction techniques were used (e.g., Automated exposure control, adjustment of the mA and/or kV according to patient size, use of iterative reconstruction technique). Intravenous contrast administration of 77 mL Isovue 370. RADIATION DOSE SUMMARY: CTDlvol: 64.09 mGy DLP: 1096.98 mGycm COMPARISON: Chest CT angiogram 09/12/2020. CT/Limited Chest CT Cardiac Only IMPRESSION: Prominent arterial contrast material is seen. Diffuse fatty infiltration of the liver is seen, upon limited evaluation. The visualized upper abdomen demonstrates no other significant abnormality. Limited imaging of the lungs demonstrates no acute process. No pleural effusion or pneumothorax is seen in visualized areas. No adenopathy is noted. The visualized upper abdomen demonstrates no significant abnormality. Reading Location: [place] [id number]
[2025-03-14 13:45] VITALS: BP 154/80; PULSE 68; RESP 16; TEMP 36.8; O2SAT 98; BMI 34.9
[2025-03-14 13:50] VITALS: BP 154/80; PULSE 65
[2025-03-14] MEDS: Nitroglycerin SL (ED/IMG/CATH) 0.4 MG TABLET SL (13:50)
[2025-03-14 14:00] VITALS: BP 131/73; PULSE 72; RESP 16; O2SAT 96
--- NOTE | 2025-03-15 06:37 | CCTA.WCONT ---
CCTA w/Cont Coronary Arteries Date of Study:: 03/14/25 Chest pain Coronary Calcium Scoring: High-resolution Computed Tomographic imaging of the chest was performed on [03/14/2025], with particular attention paid to the coronary arteries. Intravenous contrast agent was administered per protocol and images reconstructed and displayed. LEFT MAIN CORONARY ARTERY: Arises from the left coronary cusp with no significant calcification or stenosis present. [] LEFT ANTERIOR DESCENDING CORONARY ARTERY: Medium size vessel arising from the left main coronary artery. There is a moderate amount of calcification noted in the midsegment with probable mild to moderate stenosis vessel continues distally with no high-grade stenosis present. [] LEFT CIRCUMFLEX CORONARY ARTERY: Nondominant left circumflex artery with no evidence of high-grade stenosis or atherosclerotic plaquing present. [] RIGHT CORONARY ARTERY: Dominant right coronary artery with mid segment mild stenosis and calcification present minimal atherosclerotic stenosis or plaquing noted. [] THORACIC AORTA: [] PULMONARY ARTERY: [] LEFT ATRIUM/APPENDAGE: [] MITRAL VALVE: [] AORTIC VALVE: [] LEFT VENTRICLE: [] CORONARY CALCIUM SCORE: Not performed [] Calcium Scoring Interpretation: Different methods to categorize the overall amount of coronary plaque. Overall amount CAC SIS Visual of coronary plaque P1 Mild -100 <2 1-2 vessels with mild amount of plaque P2 Moderate 101-300 3-4 1-2 vessels with moderate amount, 3 vessels with mild amount of plaque P3 Severe 301-999 5-7 3 vessels with moderate amount, 1 vessel with severe amount of plaque P4 Extensive >1000 >8 2-3 vessels with severe amount of plaque Conclusion: Moderate mid LAD calcification and stenosis and mild right coronary artery calcification present.
== END | disposition home or self-care (01) ==
PROVIDERS: PCP Family Medicine; Referring Provider Nurse Practitioner Family; Visit Provider Nurse Practitioner Family
DX: I25.10 Atherosclerotic heart disease of native coronary artery without angina pectoris (principal); R06.02 Shortness of breath
CPT/HCPCS: 75574; 76380; Q9967